=== PATIENT | female | born 1930 | race Caucasian/White ===

== ENCOUNTER → 2016-04-04 | Outpatient (REF) | payer MEDICARE, OTHER ==
[~2016-04-04] MED LIST: /ADVA50050 IN; /PANT40TA OR; /TIOT18INH INH; /WARF25TA PO; ALBU17IN INH; ALBU8TAB PO; ASPI1TAB PO; BISA10SU2 RE; BISA5TA OR; BISOPROLOL PO; CIPR500T89 PO; COUM2.5T11 PO; FISH100049 PO; LISINOPRIL/HCTZ PO; MILKSUS OR; OCUVTAB PO; PERC5TAB6 PO; PERC5TAB8 OR; PERC7.5T8 OR; TYLE650T35 PO; ZOLO50TA PO
== END ==
LOC: M SFHCCLAY 11:15
PROVIDERS: ATTEND Family Medicine
DX: D22.62 Melanocytic nevi of left upper limb, including shoulder (principal)

== ENCOUNTER → 2016-09-18 | Outpatient (REF) | payer MEDICARE, OTHER ==
[~2016-09-18] MED LIST changes: +CIPR-249 PO; -CIPR500T89 PO; -COUM2.5T11 PO; +COUM2.5T17 PO; +PERC5TAB12 PO; -PERC5TAB6 PO
[2016-09-18 17:35] LABS: MEAN CORPUSCULAR HEMOGLOBIN 30.9 pg (27.0-33.0); MEAN CORPUSCULAR HGB CONC 33.6 g/dl (32.0-36.5); MEAN CORPUSCULAR VOLUME 91.8 fl (80.0-96.0); RED CELL DISTRIBUTION WIDTH 13.7 % (11.5-14.5); WHITE BLOOD COUNT 7.4 K/mm3 (4.0-10.0)
[2016-09-18 19:53] LABS: ALBUMIN 3.8 GM/DL (3.2-5.2); ALBUMIN/GLOBULIN RATIO 1.27 (1.00-1.93); ALKALINE PHOSPHATASE 68 U/L (45-117); ALT/SGPT 20 U/L (12-78); ANION GAP 11 MEQ/L (8-16); AST/SGOT 19 U/L (15-37); BILIRUBIN,TOTAL 0.4 MG/DL (0.2-1.0); BLOOD UREA NITROGEN 23 MG/DL (7-18); CALCIUM LEVEL 8.8 MG/DL (8.8-10.2); CARBON DIOXIDE LEVEL 27 MEQ/L (21-32); CHLORIDE LEVEL 104 MEQ/L (98-107); CREATININE FOR GFR 0.72 MG/DL (0.55-1.02); GLOMERULAR FILTRATION RATE > 60.0 (>32); GLUCOSE, FASTING 78 MG/DL (83-110); POTASSIUM SERUM 4.1 MEQ/L (3.5-5.1); SODIUM LEVEL 142 MEQ/L (136-145); TOTAL PROTEIN 6.8 GM/DL (6.4-8.2)
== END ==
LOC: M SFHCCLAY 13:44
PROVIDERS: ATTEND Family Medicine
DX: J45.40 Moderate persistent asthma, uncomplicated (principal); K42.9 Umbilical hernia without obstruction or gangrene; Z85.3 Personal history of malignant neoplasm of breast

== ENCOUNTER → 2017-09-18 | Outpatient (REF) | payer MEDICARE, OTHER ==
[2017-09-19 11:48] LABS: HEMOGLOBIN 13.5 g/dl (12.0-15.5); MEAN CORPUSCULAR HEMOGLOBIN 30.2 pg (27.0-33.0); MEAN CORPUSCULAR HGB CONC 32.9 g/dl (32.0-36.5); MEAN CORPUSCULAR VOLUME 91.7 fl (80.0-96.0); PLATELET COUNT, AUTOMATED 228 10^3/uL (150-450); RED BLOOD COUNT 4.47 10^6/uL (4.00-5.40); RED CELL DISTRIBUTION WIDTH 13.5 % (11.5-14.5); WHITE BLOOD COUNT 7.9 10^3/uL (4.0-10.0)
[2017-09-19 12:27] LABS: ALBUMIN 3.8 GM/DL (3.2-5.2); ALBUMIN/GLOBULIN RATIO 1.15 (1.00-1.93); ALKALINE PHOSPHATASE 59 U/L (45-117); ALT/SGPT 21 U/L (12-78); ANION GAP 9 MEQ/L (8-16); AST/SGOT 19 U/L (7-37); BILIRUBIN,TOTAL 0.6 MG/DL (0.2-1.0); BLOOD UREA NITROGEN 22 MG/DL (7-18); CALCIUM LEVEL 9.5 MG/DL (8.8-10.2); CARBON DIOXIDE LEVEL 30 MEQ/L (21-32); CHLORIDE LEVEL 103 MEQ/L (98-107); CREATININE FOR GFR 0.85 MG/DL (0.55-1.30); GLOMERULAR FILTRATION RATE > 60.0 (>32); GLUCOSE, FASTING 84 MG/DL (70-100); SODIUM LEVEL 142 MEQ/L (136-145); TOTAL PROTEIN 7.1 GM/DL (6.4-8.2)
== END ==
LOC: M SFHCCLAY 14:13
DX: Z00.00 Encounter for general adult medical examination without abnormal findings (principal); M15.0 Primary generalized (osteo)arthritis; I10 Essential (primary) hypertension; J45.40 Moderate persistent asthma, uncomplicated
CPT/HCPCS: 84443

== ENCOUNTER → 2018-01-21 | Outpatient (CLI) | payer MEDICARE, BC ==
--- NOTE | 2018-01-21 18:05 | REP ---
Right foot series: Four views. History: Right foot pain. Findings: Four views of the right foot demonstrate Achilles calcaneal spurring. Vascular calcification is noted. There is mild midfoot osteoarthritis and diffuse osteopenia. No fracture or erosive changes seen. Impression: Mild midfoot osteoarthritis. Heel spurring. Vascular calcification.
--- NOTE | 2018-01-21 18:06 | REP ---
Right ankle series: Four views. History: Right ankle pain. Findings: There is anterior and lateral soft tissue swelling. Ankle mortise is intact. No fracture is seen. Achilles and plantar calcaneal spurring is noted. Some soft tissue vascular calcification is seen. Mild midfoot osteoarthritic spurring is seen. Impression: Anterolateral swelling. No fracture or other acute bony abnormality is seen. Osteoarthritic midfoot spurring is seen. Heel spurs are noted.
== END ==
LOC: M CLY 15:13
PROVIDERS: ATTEND Family Medicine
DX: M25.471 Effusion, right ankle (principal); M25.774 Osteophyte, right foot; M19.071 Primary osteoarthritis, right ankle and foot; M85.871 Other specified disorders of bone density and structure, right ankle and foot; M79.671 Pain in right foot
CPT/HCPCS: 73610; 73630; G0463

== ENCOUNTER → 2018-10-23 | Outpatient (REF) | payer MEDICARE, OTHER ==
[~2018-10-23] MED LIST changes: -/ADVA50050 IN; -/PANT40TA OR; -/TIOT18INH INH; -/WARF25TA PO; +ADVA1AER2 IN; -ASPI1TAB PO; +ASPI81TA26 PO; +COUM1TAB18 PO; +PROT1TAB2 OR; +SPIR1CAP INH
[2018-10-23 16:38] LABS: HEMATOCRIT 42.1 % (36.0-47.0); HEMOGLOBIN 13.7 g/dl (12.0-15.5); MEAN CORPUSCULAR HGB CONC 32.5 g/dl (32.0-36.5); MEAN CORPUSCULAR VOLUME 92.3 fl (80.0-96.0); PLATELET COUNT, AUTOMATED 224 10^3/uL (150-450); RED BLOOD COUNT 4.56 10^6/uL (4.00-5.40); WHITE BLOOD COUNT 9.2 10^3/uL (4.0-10.0)
[2018-10-23 16:55] LABS: ALT/SGPT 21 U/L (12-78); BILIRUBIN,TOTAL 0.4 MG/DL (0.2-1.0); BLOOD UREA NITROGEN 21 MG/DL (7-18); CALCIUM LEVEL 9.9 MG/DL (8.8-10.2); CARBON DIOXIDE LEVEL 31 MEQ/L (21-32); CHLORIDE LEVEL 103 MEQ/L (98-107); CREATININE FOR GFR 0.76 MG/DL (0.55-1.30); FREE T4 1.09 NG/DL (0.76-1.46); GLOMERULAR FILTRATION RATE > 60.0 (>32); GLUCOSE, FASTING 91 MG/DL (70-100); POTASSIUM SERUM 3.8 MEQ/L (3.5-5.1); SODIUM LEVEL 142 MEQ/L (136-145); TOTAL PROTEIN 6.8 GM/DL (6.4-8.2)
== END ==
LOC: M SFHCCLAY 13:24
PROVIDERS: ATTEND Family Medicine
DX: I10 Essential (primary) hypertension (principal); K21.9 Gastro-esophageal reflux disease without esophagitis; G47.33 Obstructive sleep apnea (adult) (pediatric)

== ENCOUNTER → 2019-03-24 | Outpatient (REF) | payer MEDICARE, OTHER | LOC: M LAB REF 19:31 | PROVIDERS: ATTEND Ophthalmology | DX: L82.0 Inflamed seborrheic keratosis (principal) ==

== ENCOUNTER → 2019-08-02 | Outpatient (CLI) | payer MEDICARE, BC, OTHER ==
[2019-08-02 11:26] LABS: BASO % 0.4 % (0.0-1.0); EOS # 0.2 10^3/uL (0.0-0.5); EOS % 2.9 % (0.0-3.0); HEMATOCRIT 41.6 % (36.0-47.0); HEMOGLOBIN 13.8 g/dl (12.0-15.5); LYMPH # 2.1 10^3/uL (1.5-5.0); LYMPH % 25.2 % (24.0-44.0); MEAN CORPUSCULAR HEMOGLOBIN 31.2 pg (27.0-33.0); MEAN CORPUSCULAR HGB CONC 33.2 g/dl (32.0-36.5); MEAN CORPUSCULAR VOLUME 93.9 fl (80.0-96.0); MONO # 0.7 10^3/uL (0.0-0.8); MONO % 8.7 % (0.0-5.0); NEUTROPHILS # 5.3 10^3/uL (1.5-8.5); NEUTROPHILS % 62.3 % (36.0-66.0); PLATELET COUNT, AUTOMATED 219 10^3/uL (150-450); RED BLOOD COUNT 4.43 10^6/uL (4.00-5.40); WHITE BLOOD COUNT 8.4 10^3/uL (4.0-10.0)
[2019-08-02 12:13] LABS: ERYTHROCYTE SEDIMENTATION RATE 15 mm/hr (0-30)
== END ==
LOC: M LAB 10:52
PROVIDERS: ATTEND Physician Assistant
DX: M25.561 Pain in right knee (principal)
CPT/HCPCS: 36415; 78315; 85025; 85652; 86140; A9503